=== PATIENT | female | born 1930 | race Caucasian/White ===

== ENCOUNTER 2017-07-03 19:52 | Observation (INO) ==
[2017-07-03] MEDS ORDERED: Naloxone 0.4 MG/ML INJ IVP PRN (21:40)
[2017-07-03] MEDS ORDERED: cefTRIAXone 1,000 MG in Water for inj. (sterile) 10 ML IVP SCH (22:00)
[2017-07-03] MEDS ORDERED: cefTRIAXone 1,000 MG in Water for inj. (sterile) 10 ML IVPB SCH (23:51)
[2017-07-04 09:14] LABS: Calcium 9.7 mg/dL (8.6-10.8); Potassium 3.7 mEq/L (3.5-4.5)
[2017-07-04 09:40] LABS: Basophils % 0.6 %; Eosinophils # 0.1 K/mcL (0.0-0.6); Eosinophils % 1.9 %; Hematocrit 29.5 % (35.3-44.9); Hemoglobin 9.9 g/dL (11.5-15.4); Immature Granulocytes % 0.2 % (0-4); Lymphocytes # 0.9 K/mcL (0.6-4.6); Lymphocytes % 19.7 %; Mean Corpuscular HGB Conc 33.6 g/dL (31.6-35.5); Mean Corpuscular Hemoglobin 31.2 pg (28.0-33.3); Mean Corpuscular Volume 93.1 fL (83.0-100.0); Monocytes # 0.3 K/mcL (0.0-1.3); Monocytes % 6.4 %; Neutrophils # 3.3 K/mcL (1.6-8.9); Platelet Count 184 K/mcL (140-400); Red Blood Count 3.17 M/mcL (3.82-4.97); Red Cell Distribution Width 12.5 % (11.5-14.5); Segmented Neutrophils % 71.2 %
--- NOTE | 2017-07-04 14:56 | Internal Med History&Physical ---
Date of Encounter: 07/04/17 Time of Encounter: 14:15 Assessment and Plan (1) Altered mental status Current visit: No Status: Acute She is a fair to poor historian but I do not know what her baseline is. I tried unsuccessfully to contact her daughter. I will order MMSE. Head CT showed no acute pathology. Qualifiers: Altered mental status type: unspecified Qualified Code(s): R41.82 - Altered mental status, unspecified (2) CKD (chronic kidney disease) stage 3, GFR 30-59 ml/min Current visit: Yes Status: Chronic Will monitor renal indices. (3) Anemia Current visit: Yes Status: Acute Will order anemia testing Qualifiers: Anemia type: unspecified type Qualified Code(s): D64.9 - Anemia, unspecified (4) Weight loss Current visit: Yes Status: Acute Will order TSH and CT of chest abdomen and pelvis. (5) UTI (urinary tract infection) Current visit: No Status: Acute She has been started empirically on Rocephin. I will add lactobacillus. Qualifiers: Urinary tract infection type: site unspecified Hematuria presence: without hematuria Qualified Code(s): N39.0 - Urinary tract infection, site not specified Internal Medicine - H&P: HPI Chief complaint: Altered mental status Admitted From: Emergency Dept Plans for Post Hospital Care: Home History of present illness: Ms. Ward is a 87 year old female who was taken from her PCP Dr. Flynn' s office to [facility] emergency room after she appeared to have altered mental status during an office visit. Evaluation in the emergency room showed no findings other than possible UTI. There were no beds available so she was transferred to [facility] for admission for ongoing care needs. She is a fair historian. She does not recall the sequence of events or reason for going to the hospital. She denies pain or dyspnea at the present time. Her history is pertinent for chronic kidney disease. She states she has one nonfunctioning kidney and has a renal artery stent in the functioning kidney. Past Med Surg Social Fam HX - Past Medical History Medical history: non-contributory, cancer, diabetes, hyperlipidemia, hypertension, renal disease Psychiatric history: no psych history - Social History Smoking Status: Never smoker Smokeless Tobacco Status: No Alcohol use: none Drug use: none Internal Medicine - H&P: Meds Ciprofloxacin [Cipro] 500 mg PO BID #20 tablet 11/15/16 [Rx] metroNIDAZOLE [Flagyl] 500 mg PO BID #20 tablet 11/15/16 [Rx] 3 Allergy/AdvReac Type Severity Reaction Status Date / Time No Known Allergies Allergy Verified 06/23/17 20:54 All Systems PM: A 10-system review of systems was performed and is negative for pertinent findings except as documented above in the HPI. Review of systems: Gen.: She states her weight has decreased from 150 pounds November 2016 to present weight of 108 pounds in the past 7 months, unintentional Cardiovascular: She has history of hypertension but denies TX heart failure angina DVT or pulmonary embolus Respiratory: She states she is a lifelong nonsmoker and has no known chronic lung disease GI: She states she has had dark stools. She denies abdominal pain or change in her bowel habits. She denies disorders of her liver gallbladder or exocrine pancreas : As per history of present illness Neurologic: She had a approximately 2 weeks ago and sustained a subdural hematoma. She was transferred to [facility] in [place] and was treated nonsurgically. She denies large distribution strokes or seizures. Endocrine: She states she was diagnosed with DM 2 approximately 2006. 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 She is unclear about treatment details. She was unaware she had anemia Psychiatric: She has depression but denies anxiety other mental health issues Musk skeletal: She complains of back pain but denies other bone joint or muscle disorders. - Constitutional Vitals: Temp Pulse Resp BP Pulse Ox 98.5 F 65 18 135/68 94 07/04/17 11:18 07/04/17 11:18 07/04/17 11:18 07/04/17 11:18 07/04/17 11:18 Exam: Gen.: She is well-developed well-nourished female lying quietly in bed who appears in no severe distress at present time HEENT: Head is atraumatic and normocephalic. Eyes: EOMI. There is no scleral icterus. Mouth: Mucosa is moist. Neck: Supple and nontender. There is no thyromegaly or adenopathy noted. Heart: Regular without murmurs gallops or ectopics Lungs: No wheezes or crackles are heard. Abdomen: Soft and nontender. No masses or guarding are noted. Extremities: There is no cyanosis edema or clubbing noted. Dorsalis pedis and posterior tibial pulses are trace to 1+ palpable bilaterally. Neurologic: Mental status: She is talkative but a fair historian at best. Cranial nerves: Smile is symmetric. Forehead wrinkles bilaterally. Tongue protrudes midline. EOMI. Motor: There is no pronator drift. Cerebellar: Finger to nose is intact bilaterally. Skin: Warm and dry Internal Med - H&P Results - Labs CBC & Chem 7: 07/04/17 08:35 07/04/17 08:35 Labs: Short CBC 07/04/17 Range/Units 08:35 WBC 4.7 (4.3-11.1) K/mcL Hgb 9.9 L D (11.5-15.4) g/dL Hct 29.5 L (35.3-44.9) % Plt Count 184 (140-400) K/mcL Neutrophils # 3.3 (1.6-8.9) K/mcL BMP 07/04/17 08:35 Sodium 140 Potassium 3.7 Chloride 105 Carbon Dioxide 27 BUN 25 H Creatinine 1.33 H Glucose 248 H Calcium 9.7
[2017-07-04] MEDS: 0.45 % Sodium Chloride w/KCl 20 MEQ/1,000 ML MLS IVC SCH (17:27)
[2017-07-04] MEDS: Lactobacillus 1 EACH CAP.SPRINK PO SCH (20:10)
[2017-07-04] MEDS: Insulin LISPRO 300 UNITS/3 ML VIAL SQ SCH (22:06)
[2017-07-05] MEDS: cefTRIAXone 1,000 MG in Water for inj. (sterile) 10 ML IVPB SCH (00:26)
[2017-07-05] MEDS: 0.45 % Sodium Chloride w/KCl 20 MEQ/1,000 ML MLS IVC SCH (06:07)
[2017-07-05] MEDS: Lactobacillus 1 EACH CAP.SPRINK PO SCH ×2 (08:23→21:36)
[2017-07-05] MEDS: Insulin LISPRO 300 UNITS/3 ML VIAL SQ SCH ×4 (08:25→21:38)
[2017-07-05 10:16] LABS: Hematocrit 29.6 % (35.3-44.9); Mean Corpuscular HGB Conc 33.8 g/dL (31.6-35.5); Mean Corpuscular Hemoglobin 31.3 pg (28.0-33.3); Mean Corpuscular Volume 92.5 fL (83.0-100.0); Platelet Count 180 K/mcL (140-400); Red Cell Distribution Width 12.6 % (11.5-14.5)
[2017-07-05 10:17] LABS: Basophils % 0.2 %; Eosinophils # 0.1 K/mcL (0.0-0.6); Eosinophils % 2.8 %; Immature Granulocytes % 0.5 % (0-4); Lymphocytes # 1.1 K/mcL (0.6-4.6); Lymphocytes % 25.5 %; Mean Platelet Volume 11.3 fL (9.4-12.4); Monocytes # 0.3 K/mcL (0.0-1.3); Monocytes % 7.6 %; Neutrophils # 2.7 K/mcL (1.6-8.9); Segmented Neutrophils % 63.4 %
[2017-07-05 10:34] LABS: Magnesium 1.6 mg/dL (1.6-2.6)
[2017-07-05 11:06] LABS: Thyroid Stimulating Hormone 1.075 mcIU/mL (0.350-4.840)
--- NOTE | 2017-07-05 11:36 | Internal Med Progress Note ---
Date of Encounter: 07/05/17 Time of Encounter: 11:30 - Assessment and plan (1) Altered mental status Current Visit: No Status: Acute Assessment and plan: July 05. I suspect she is back to her baseline. MMSE and B12 level are pending. TSH was normal. Qualifiers: Altered mental status type: unspecified Qualified Code(s): R41.82 - Altered mental status, unspecified (2) CKD (chronic kidney disease) stage 3, GFR 30-59 ml/min Current Visit: Yes Status: Chronic Assessment and plan: July 05. Renal indices were stable on admission. (3) Anemia Current Visit: Yes Status: Acute Assessment and plan: July 05. Anemia testing is pending. Qualifiers: Anemia type: unspecified type Qualified Code(s): D64.9 - Anemia, unspecified (4) Weight loss Current Visit: Yes Status: Acute Assessment and plan: CT of the abdomen/ pelvis and chest did not show significant pathology. TSH was normal (5) UTI (urinary tract infection) Current Visit: No Status: Acute Assessment and plan: July 05. Urine culture report is pending. Continue Rocephin and Lactobacillus empirically. Qualifiers: Urinary tract infection type: site unspecified Hematuria presence: without hematuria Qualified Code(s): N39.0 - Urinary tract infection, site not specified - Subjective Interval history: July 05. She has no new complaints. - Constitutional Vitals: Temp Pulse Resp BP Pulse Ox 98.1 F 55 16 144/71 99 07/05/17 10:21 07/05/17 10:21 07/05/17 10:21 07/05/17 10:21 07/05/17 10:21 Exam: She is resting comfortably in bed and appears in no acute distress. She is generally appropriate in conversation but repeats questions and thoughts often. I reviewed her medications and lab results. Internal Medicine: Result - Labs CBC & Chem 7: 07/05/17 07:15 07/04/17 08:35 Labs: Short CBC 07/05/17 Range/Units 07:15 WBC 4.2 L (4.3-11.1) K/mcL Hgb 10.0 L (11.5-15.4) g/dL Hct 29.6 L (35.3-44.9) % Plt Count 180 (140-400) K/mcL Neutrophils # 2.7 (1.6-8.9) K/mcL - Impressions Impressions Abdomen/Pelvis CT 07/04/17 15:10 IMPRESSION: 1. No abnormalities identified within the chest, abdomen, and pelvis to explain a 30 pound weight loss. 2. Overall, no acute abnormalities detected. 3. Mild scarring within lower lungs is detected bilaterally, with architectural distortion and bronchiectasis, location of which would suggest remote inflammation/infection. Correlate with any history of aspiration. D/ / Wes Walden MD / Wes Walden MD Interpreting Provider: Wes Walden MD Chest CT 07/04/17 15:10 IMPRESSION: 1. No abnormalities identified within the chest, abdomen, and pelvis to explain a 30 pound weight loss. 2. Overall, no acute abnormalities detected. 3. Mild scarring within lower lungs is detected bilaterally, with architectural distortion and bronchiectasis, location of which would suggest remote inflammation/infection. Correlate with any history of aspiration. D/ / Wes Walden MD / Wes Walden MD Interpreting Provider: Wes Walden MD Consult Discharge Plan - Plan Referrals: Bartolo Perez DO [Primary Care Provider] - 1 week
[2017-07-05 15:49] LABS: Folate 6.2 ng/mL (7.0-31.4)
[2017-07-06] MEDS: cefTRIAXone 1,000 MG in Water for inj. (sterile) 10 ML IVPB SCH (05:37)
[2017-07-06] MEDS: 0.45 % Sodium Chloride w/KCl 20 MEQ/1,000 ML MLS IVC SCH (08:19)
[2017-07-06] MEDS: Insulin LISPRO 300 UNITS/3 ML VIAL SQ SCH ×2 (08:20→12:27)
[2017-07-06] MEDS: Lactobacillus 1 EACH CAP.SPRINK PO SCH (08:20)
[2017-07-06 09:25] VITALS: BP 173/69
--- NOTE | 2017-07-06 10:41 | Discharge Summary ---
Date of Encounter: 07/06/17 Time of Encounter: 10:30 - Discharge Diagnosis (1) Altered mental status Priority: Primary Status: Resolved Qualifiers: Altered mental status type: unspecified Qualified Code(s): R41.82 - Altered mental status, unspecified (2) CKD (chronic kidney disease) stage 3, GFR 30-59 ml/min Priority: Secondary Status: Chronic (3) Anemia Priority: Primary Status: Acute Qualifiers: Anemia type: unspecified type Qualified Code(s): D64.9 - Anemia, unspecified (4) Weight loss Priority: Secondary Status: Acute (5) UTI (urinary tract infection) Priority: Secondary Status: Acute Qualifiers: Urinary tract infection type: site unspecified Hematuria presence: without hematuria Qualified Code(s): N39.0 - Urinary tract infection, site not specified - Discharge Medications Prescriptions: Cefuroxime PO [Ceftin] 500 mg PO Q12HR #6 tablet Lactobacillus [Culturelle] 1 each PO BID #6 cap.sprink Home Medications: Ativan 1 mg PO BID 07/04/17 [History] Furosemide [Lasix] 40 mg PO DAILY 07/04/17 [History] Lisinopril 20 mg PO DAILY 07/04/17 [History] Simvastatin 40 mg PO HS 07/04/17 [History] Zoloft 50 mg PO DAILY 07/04/17 [History] Cefuroxime PO [Ceftin] 500 mg PO Q12HR #6 tablet 07/06/17 [Rx] Lactobacillus [Culturelle] 1 each PO BID #6 cap.sprink 07/06/17 [Rx] Allergies/Adverse Reactions: 3 Allergy/AdvReac Type Severity Reaction Status Date / Time No Known Allergies Allergy Verified 06/23/17 20:54 Procedures/tests Complete & Pending: Procedures Performed prior 72 hours Category Date Time Status CT abd pelvis wo no iv no oral [CT] Routine Cat Scan 07/04/17 15:[address] chest wo con [CT] Routine Cat Scan 07/04/17 15:10 Completed Date of admission: 07/03/17 20:04 Primary care physician: Bartolo Perez, Consults: 07/04/17 00:42 Consult to Boat Dock Operator [CONS] Routine Reason for SW Consult: Lives at home alone with elderly spouse, and has multiple falls in the last 6 months. 07/04/17 09:35 Consult to Occupational Therapy [CONS] Routine Comment: Evaluate, develop and implement POC Reason for Consult: Fall, weakness, SDH Consult to Physical Therapy [CONS] Routine Comment: Evaluate, develop and implement POC Reason for Consult: Fall, weakness, SDH - Patient Status Disposition: Home Health Service Overall status at discharge: patient is progressing back to baseline - Discharge Instructions Follow Up With: Bartolo Perez DO [Primary Care Provider] - 1 week - Diet and Activity Activity: resume usual activities as tolerated Diet: advance to your usual diet Hospital course: Ms. Ward is a 87 year old female who was taken from Dr. Flynn's office to [facility] emergency room after she appeared to have altered mental status during an office visit. Evaluation in the emergency room showed no findings other than possible UTI. There were no beds available so she was transferred to [facility] for admission for ongoing care needs. I saw the patient on July 04 and performed the history and physical. Head CT showed no acute pathology. A MMSE exam showed score of 30/30 however there was impairment in clock face drawing with mirror image placement of clock numerals and clock hands. She. Matti stated she had stage IV cancer but could not give details. She was started empirically on Rocephin for UTI. Urine culture report never came for she will continue with Ceftin and lactobacillus for 3 additional days of discharge. CT scan of chest, abdomen and pelvis showed no significant pathology to explain patient's reported 30 pound weight loss. Anemia testing showed iron 66, transferrin saturation 20%, transferrin 167, ferritin 80, B12 244, and folate 6.2. TSH was normal at 1.075. On July 06 I felt she was stable for discharge home. She will follow with her PCP Dr. Rosario within one week. Home health services will be ordered. - Time Spent with Patient Total time spent providing and/or coordinating discharge services: - Constitutional Vitals: Temp Pulse Resp BP Pulse Ox 98.3 F 58 16 173/69 94 07/06/17 07:46 07/06/17 07:46 07/06/17 07:46 07/06/17 07:46 07/06/17 07:46
--- NOTE | 2017-07-06 10:54 | Physician Discharge Referral ---
Home Health/Hosp Referral Info Transfer to: Home Health Attending Provider: Frederick Provider in Charge Post Discharge: PCP Víctor) - Diagnosis (1) UTI (urinary tract infection) Priority: Primary Status: Acute (2) Altered mental status Priority: Secondary Status: Resolved (3) CKD (chronic kidney disease) stage 3, GFR 30-59 ml/min Priority: Secondary Status: Chronic (4) Anemia Priority: Secondary Status: Acute (5) Weight loss Priority: Secondary Status: Acute - Respiratory Orders Smoking Cessation: Smoking cessation has been advised. For more information, call the [place] Tobacco Quit Line at 9-578-QSYI-NOW. - Diet/Nutrition Diet/Nutrition Orders: Regular - Activity Activity Orders: Ambulate - Services Needed Following services are medically necessary services: Nursing, Home Health Aide, Physical Therapy, Occupational Therapy - Transfer Medications Prescriptions: Cefuroxime PO [Ceftin] 500 mg PO Q12HR #6 tablet Lactobacillus [Culturelle] 1 each PO BID #6 cap.sprink Home Medications: Ativan 1 mg PO BID 07/04/17 [History] Furosemide [Lasix] 40 mg PO DAILY 07/04/17 [History] Lisinopril 20 mg PO DAILY 07/04/17 [History] Simvastatin 40 mg PO HS 07/04/17 [History] Zoloft 50 mg PO DAILY 07/04/17 [History] Cefuroxime PO [Ceftin] 500 mg PO Q12HR #6 tablet 07/06/17 [Rx] Lactobacillus [Culturelle] 1 each PO BID #6 cap.sprink 07/06/17 [Rx] Allergies/Adverse Reactions: 3 Allergy/AdvReac Type Severity Reaction Status Date / Time No Known Allergies Allergy Verified 06/23/17 20:54 Certification: Further, I certify that my clinical findings support that this patient is homebound (i.e. absences from home require considerable and taxing effort and are for medical reasons or hoahaoism services or infrequently or short duration when for other reasons) because: Homebound Reason: Leaving home requires considerable and taxing effort due to condition (Confusion, weakness, UTI) Attestation: My signature below is to certify that this patient is under my care and that I, or nurse practitioner, or a physician's pharmacy sales assistant working with me, has a face-to -face encounter with this patient.
== END 2017-07-06 15:16 | disposition home health service (06) ==
LOC: INPPIK
PROVIDERS: ADMIT Internal Medicine; ATTEND Internal Medicine